=== PATIENT | female | born 1950 | race Caucasian/White ===

== ENCOUNTER → 2016-11-02 | Outpatient (REF) | payer MEDICARE, MEDICAID ==
[~2016-11-02] MED LIST: /DULO30CA OR; ACET65TA OR; AMLO10TAB OR; ASPI81TA83 OR; ATEN25TA OR; CITRACAL OR; COLA100C2 OR; COMBIGAN OU; FLON0.05; GLUC500T OR; LANTUS SUBQ; LEVA500T OR; LEVOXYL25 MCG OR; LISI5TAB OR; LUMIGAN OU; MECL25TA2 OR; NEUR100C OR; OXYCPOW OR; PENNSAID EXT; TRAM50TA2 OR; VIT D
[2016-11-02 16:37] LABS: CALCIUM LEVEL 9.1 MG/DL (8.8-10.2); CREATININE FOR GFR 1.31 MG/DL (0.55-1.02); GLOMERULAR FILTRATION RATE 43.1 (>45); POTASSIUM SERUM 4.6 MEQ/L (3.5-5.1)
== END ==
LOC: M SFHCPLAZ 14:31
PROVIDERS: ATTEND Nurse Practitioner Family
DX: I11.0 Hypertensive heart disease with heart failure (principal)
CPT/HCPCS: 36415; 80048; G0463

== ENCOUNTER → 2016-11-16 | Outpatient (REF) | payer MEDICARE, MEDICAID ==
[2016-11-16 11:57] LABS: CALCIUM LEVEL 9.5 MG/DL (8.8-10.2); CREATININE FOR GFR 1.16 MG/DL (0.55-1.02); GLOMERULAR FILTRATION RATE 49.6 (>45); POTASSIUM SERUM 4.6 MEQ/L (3.5-5.1)
== END ==
LOC: M SFHCPLAZ 09:34
PROVIDERS: ATTEND Family Medicine
DX: I10 Essential (primary) hypertension (principal)

== ENCOUNTER → 2017-03-02 | Outpatient (CLI) | payer MEDICAID, MEDICARE ==
--- NOTE | 2017-03-05 09:44 | SLEEPCENT ---
DATE OF PROCEDURE: 03/02/2017 ORDERED BY: JOSE RAFAEL Prince Nocturnal polysomnography was performed for re-titration of pressure therapy in this patient with obstructive sleep apnea syndrome utilizing bilevel pressure therapy. For testing, a [place]iz[place] and [employer] Corta, Simplus full face mask of small size was used. An initial pressure of 8/4 was applied to the circuit and the lights were extinguished. 7 hours and 14 minutes of data were reviewed. There were 267 minutes of sleep identified. Sleep latency was prolonged at 99 minutes. Rapid eye movement (REM) latency was short at 49 minutes. Sleep architecture did improve with optimal pressure therapy. Overall sleep efficiency was 63% due to periods of wake during testing. The patient's EKG showed an underlying paced rhythm with PVCs. EEG showed fairly normal waveforms for awake and sleep. Persistence of respiratory events prompted increases in pressure therapy. The patient's best sleep was seen on an inspiratory pressure of 14 over expiratory pressure of 10. There was some activity in the mid portion of the study, but arousals from limb events were few. IMPRESSION: Obstructive sleep apnea syndrome (G47.33). RECOMMENDATION: Nightly use of bilevel pressure therapy inspiratory pressure of 14 over expiratory pressure of 10.
== END ==
LOC: M SLEEP 19:41
PROVIDERS: ATTEND Nurse Practitioner Adult Health
DX: G47.33 Obstructive sleep apnea (adult) (pediatric) (principal)

== ENCOUNTER → 2017-03-15 | Outpatient (REF) | payer MEDICARE ==
[2017-03-15 11:46] LABS: BASO % 0.4 % (0.0-1.0); EOS # 0.2 K/mm3 (0.0-0.50); EOS % 1.8 % (0.0-3.0); LARGE UNSTAINED CELL # 0.1 K/mm3 (0.0-0.4); LARGE UNSTAINED CELL % 1.5 % (0.0-4.0); LYMPH % 24.1 % (24.0-44.0); MEAN CORPUSCULAR HEMOGLOBIN 31.7 pg (27.0-33.0); MEAN CORPUSCULAR HGB CONC 32.4 g/dl (32.0-36.5); MEAN CORPUSCULAR VOLUME 97.8 fl (80.0-96.0); MONO # 0.7 K/mm3 (0.0-0.8); MONO % 8.6 % (0.0-5.0); NEUTROPHILS # 5.3 K/mm3 (1.8-7.7); NEUTROPHILS % 63.4 % (36.0-66.0); PLATELET COUNT, AUTOMATED 185 k/mm3 (150-450); RED CELL DISTRIBUTION WIDTH 12.5 % (11.5-14.5); WHITE BLOOD COUNT 8.4 K/mm3 (4.0-10.0)
[2017-03-15 11:49] LABS: ADD MORPHOLOGY? NO
[2017-03-15 11:52] LABS: ALBUMIN 3.8 GM/DL (3.2-5.2); ALBUMIN/GLOBULIN RATIO 1.15 (1.00-1.93); BILIRUBIN,TOTAL 0.6 MG/DL (0.2-1.0); CALCIUM LEVEL 9.2 MG/DL (8.8-10.2); CREATININE FOR GFR 1.29 MG/DL (0.55-1.02); FREE T4 1.17 NG/DL (0.76-1.46); GLOMERULAR FILTRATION RATE 43.9 (>45); POTASSIUM SERUM 5.4 MEQ/L (3.5-5.1); TOTAL PROTEIN 7.1 GM/DL (6.4-8.2)
== END ==
LOC: M SFHCPLAZ 08:45
PROVIDERS: ATTEND Nurse Practitioner Family
DX: I11.0 Hypertensive heart disease with heart failure (principal); E11.9 Type 2 diabetes mellitus without complications; E03.9 Hypothyroidism, unspecified

== ENCOUNTER → 2017-03-16 | Outpatient (REF) | payer MEDICARE ==
[2017-03-16 13:20] LABS: ANION GAP 9 MEQ/L (8-16); BLOOD UREA NITROGEN 29 MG/DL (7-18); CALCIUM LEVEL 9.4 MG/DL (8.8-10.2); CARBON DIOXIDE LEVEL 26 MEQ/L (21-32); CHLORIDE LEVEL 100 MEQ/L (98-107); CREATININE FOR GFR 1.45 MG/DL (0.55-1.02); GAMMA GLUTAMYLTRANSPEPTIDASE 44 U/L (5-55); GLOMERULAR FILTRATION RATE 38.3 (>45); GLUCOSE, FASTING 350 MG/DL (80-110); SODIUM LEVEL 135 MEQ/L (136-145)
[2017-03-16 13:25] LABS: POTASSIUM SERUM 5.8 MEQ/L (3.5-5.1)
== END ==
LOC: M SFHCPLAZ 10:35
PROVIDERS: ATTEND Family Medicine
DX: R94.5 Abnormal results of liver function studies (principal); E87.5 Hyperkalemia; Z79.899 Other long term (current) drug therapy

== ENCOUNTER → 2017-03-24 | Outpatient (REF) | payer MEDICARE ==
[2017-03-24 12:01] LABS: CALCIUM LEVEL 8.8 MG/DL (8.8-10.2); CREATININE FOR GFR 1.36 MG/DL (0.55-1.02); GLOMERULAR FILTRATION RATE 41.3 (>45); POTASSIUM SERUM 4.4 MEQ/L (3.5-5.1)
== END ==
LOC: M SFHCPLAZ 09:22
PROVIDERS: ATTEND Nurse Practitioner Family
DX: E11.9 Type 2 diabetes mellitus without complications (principal)

== ENCOUNTER → 2017-08-01 | Outpatient (CLI) | payer MEDICARE ==
--- NOTE | 2017-08-01 18:10 | REP ---
Duplex carotid sonography: History: Hypertension. Carotid bruit. Right carotid: The right common carotid artery is unremarkable on two-dimensional scanning. There is mild mixed plaquing in the bulb and proximal ICA on two-dimensional scanning. Color flow and spectral Doppler interrogation are unremarkable on the right. Velocity chart right carotid: Right CCA/PSV 71 cm/S Right ICA/PSV 63 EDV 22 Right ECA/PSV 60 Right ICA/CCA ratio normal 0.9. Impression: 0-15% category narrowing in the right ICA. Left carotid: Left common carotid artery is unremarkable and two-dimensional scanning. There is mild mixed plaquing in the bulb and proximal ICA. Color flow and spectral Doppler interrogation are unremarkable on the left. Velocity chart left carotid: Left CCA/PSV 64 cm/S Left ICA/PSV 64 EDV 22 Left ECA/PSV 83 Left ICA/CCA normal 1.0. Impression: 16-49% category narrowing in the left ICA by Doppler velocity criteria. Probably near the lower end of this range. Please note that ICA velocities have not increased significantly since the December 07, 2013 prior study. Signed by Cade Nelson MD 08/01/2017 08:02 P
== END ==
LOC: M RAD 16:17
PROVIDERS: ATTEND Nurse Practitioner Family
DX: I10 Essential (primary) hypertension (principal); R09.89 Other specified symptoms and signs involving the circulatory and respiratory systems

== ENCOUNTER → 2017-10-28 | Outpatient (CLI) | payer MEDICARE, MEDICAID | LOC: M RAD 15:00 | DX: N18.3 Chronic kidney disease, stage 3 (moderate) (principal); E11.22 Type 2 diabetes mellitus with diabetic chronic kidney disease; I11.0 Hypertensive heart disease with heart failure; I50.9 Heart failure, unspecified | CPT/HCPCS: 76775 ==

== ENCOUNTER → 2017-11-17 | Outpatient (CLI) | payer MEDICARE | LOC: M WHC 12:54 | DX: Z12.31 Encounter for screening mammogram for malignant neoplasm of breast (principal); Z13.820 Encounter for screening for osteoporosis; M81.0 Age-related osteoporosis without current pathological fracture | CPT/HCPCS: 77067 ==

== ENCOUNTER → 2018-01-05 | Outpatient (REF) | payer MEDICARE ==
[2018-01-05 13:08] LABS: TOTAL 25(OH) VITAMIN D 25.2 NG/ML (30.0-100.0)
[2018-01-05 14:03] LABS: ALBUMIN 3.8 GM/DL (3.2-5.2); ALBUMIN/GLOBULIN RATIO 1.12 (1.00-1.93); ALKALINE PHOSPHATASE 148 U/L (45-117); ALT/SGPT 40 U/L (12-78); ANION GAP 8 MEQ/L (8-16); AST/SGOT 19 U/L (7-37); BILIRUBIN,TOTAL 0.5 MG/DL (0.2-1.0); BLOOD UREA NITROGEN 38 MG/DL (7-18); CALCIUM LEVEL 9.3 MG/DL (8.8-10.2); CARBON DIOXIDE LEVEL 25 MEQ/L (21-32); CHLORIDE LEVEL 107 MEQ/L (98-107); CHOLESTEROL LEVEL 117 MG/DL (<200); CHOLESTEROL RISK RATIO 4.178 (<5); CREATININE FOR GFR 1.28 MG/DL (0.55-1.30); FREE T4 1.05 NG/DL (0.76-1.46); GLOMERULAR FILTRATION RATE 44.1 (>45); GLUCOSE, FASTING 176 MG/DL (70-100); HDL CHOLESTEROL 28 MG/DL (>40); NON-HDL-C 89 MG/DL; POTASSIUM SERUM 4.5 MEQ/L (3.5-5.1); SODIUM LEVEL 140 MEQ/L (136-145); TOTAL PROTEIN 7.2 GM/DL (6.4-8.2); TRIGLYCERIDES LEVEL 275 MG/DL (<150)
[2018-01-05 15:14] LABS: ESTIMATED AVERAGE GLUCOSE 321 MG/DL (60-110); HEMOGLOBIN A1c 12.8 %
== END ==
LOC: M SFHCPLAZ 09:06
DX: E11.69 Type 2 diabetes mellitus with other specified complication (principal); E03.9 Hypothyroidism, unspecified; E78.5 Hyperlipidemia, unspecified; I50.42 Chronic combined systolic (congestive) and diastolic (congestive) heart failure; E55.9 Vitamin D deficiency, unspecified
CPT/HCPCS: 84443

== ENCOUNTER → 2018-02-24 | Outpatient (CLI) | payer MEDICARE ==
[2018-02-24 09:53] LABS: ESTIMATED AVERAGE GLUCOSE 209 MG/DL (60-110); HEMOGLOBIN A1c 8.9 %
[2018-02-24 10:15] LABS: FREE T4 0.92 NG/DL (0.76-1.46); RHEUMATOID FACTOR QUANT < 10.0 IU/ML (<15.0); TOTAL PROTEIN 7.3 GM/DL (6.4-8.2)
[2018-02-24 10:56] LABS: ERYTHROCYTE SEDIMENTATION RATE 30 mm/hr (0-30)
[2018-02-24 12:20] LABS: VITAMIN B12 LEVEL 243 PG/ML (247-911)
[2018-02-24 12:28] LABS: FOLATE 12.1 NG/ML (>5.4)
[2018-02-27 11:07] LABS: ALBUMIN 4.15 GM/DL (3.29-5.55); ALBUMIN % 56.9 % (55.8-66.1); ALPHA-1-GLOBULIN % 4.9 % (2.9-4.9); ALPHA-1-GLOBULINS 0.36 GM/DL (0.17-0.41); ALPHA-2-GLOBULINS 0.86 GM/DL (0.42-0.99); ALPHA-2-GLOBULINS % 11.8 % (7.1-11.8); BETA-1-GLOBULINS 0.51 GM/DL (0.28-0.60); BETA-2-GLOBULINS 0.47 GM/DL (0.19-0.55); BETA-2-GLOBULINS % 6.5 % (3.2-6.5); GAMMA GLOBULIN % 12.9 % (11.1-18.8); GAMMA GLOBULINS 0.94 GM/DL (0.65-1.58)
[2018-03-02 00:07] LABS: ACETYLCHOLINE RCPTOR BINDING A < 0.03 nmol/L (0.00-0.24); ANTINUCLEAR ANTIBODIES DIRECT Negative (Negative); STRIATIONAL ANTIBODIES Negative (Neg:<1:40); VITAMIN B1 LEVEL WHOLE BLOOD 112.5 nmol/L (66.5-200.0); VITAMIN B6,PYRIDOXAL PHOSPHATE 11.9 ug/L (2.0-32.8); VITAMIN E(ALPHA TOCOPHEROL) 8.9 mg/L (9.0-29.0); VITAMIN E(GAMMA TOCOPHEROL) 2.8 mg/L (0.5-4.9)
== END ==
LOC: M RAD 08:37
DX: H53.2 Diplopia (principal); M43.06 Spondylolysis, lumbar region; R20.2 Paresthesia of skin; E11.9 Type 2 diabetes mellitus without complications; E04.8 Other specified nontoxic goiter
CPT/HCPCS: 70450

== ENCOUNTER → 2018-08-07 | Outpatient (CLI) | payer MEDICARE, MEDICAID ==
[2018-08-07 14:14] LABS: FOLATE 15.6 NG/ML (>5.4)
[2018-08-07 14:14] LABS: VITAMIN B12 LEVEL > 2000 PG/ML (247-911)
[2018-08-11 09:44] LABS: Methylmalonic Acid 222 nmol/L (0-378)
== END ==
LOC: M RAD 13:14
DX: E53.8 Deficiency of other specified B group vitamins (principal); I63.09 Cerebral infarction due to thrombosis of other precerebral artery; R27.0 Ataxia, unspecified
CPT/HCPCS: 70450

== ENCOUNTER → 2018-10-10 | Outpatient (REF) | payer MEDICARE, MEDICAID ==
[2018-10-10 12:24] LABS: ESTIMATED AVERAGE GLUCOSE 229 MG/DL (60-110); HEMOGLOBIN A1c 9.6 %
== END ==
LOC: M SFHCPLAZ 09:58
DX: E11.69 Type 2 diabetes mellitus with other specified complication (principal)
CPT/HCPCS: 83036

== ENCOUNTER → 2018-10-16 | Outpatient (REF) | payer MEDICARE, MEDICAID ==
[2018-10-16 16:17] LABS: CALCIUM LEVEL 9.1 MG/DL (8.8-10.2); CREATININE FOR GFR 1.34 MG/DL (0.55-1.30); GLOMERULAR FILTRATION RATE 41.7 (>45); POTASSIUM SERUM 4.6 MEQ/L (3.5-5.1)
== END ==
LOC: M LABDRAW1 15:53
PROVIDERS: ATTEND Physician Assistant
DX: I50.42 Chronic combined systolic (congestive) and diastolic (congestive) heart failure (principal)

== ENCOUNTER → 2019-02-20 | Outpatient (REF) | payer MEDICARE, MEDICAID ==
[~2019-02-20] MED LIST changes: -/DULO30CA OR; +CYMB1CAP5 OR
[2019-02-20 18:58] LABS: HEMATOCRIT 38.7 % (36.0-47.0); HEMOGLOBIN 12.2 g/dl (12.0-15.5); MEAN CORPUSCULAR HEMOGLOBIN 30.7 pg (27.0-33.0); MEAN CORPUSCULAR HGB CONC 31.5 g/dl (32.0-36.5); MEAN CORPUSCULAR VOLUME 97.5 fl (80.0-96.0); PLATELET COUNT, AUTOMATED 168 10^3/uL (150-450); RED BLOOD COUNT 3.97 10^6/uL (4.00-5.40); WHITE BLOOD COUNT 8.7 10^3/uL (4.0-10.0)
[2019-02-20 19:12] LABS: ALBUMIN 3.6 GM/DL (3.2-5.2); BILIRUBIN,TOTAL 0.6 MG/DL (0.2-1.0); CALCIUM LEVEL 8.9 MG/DL (8.8-10.2); CREATININE FOR GFR 1.51 MG/DL (0.55-1.30); GLOMERULAR FILTRATION RATE 36.4 (>45); MAGNESIUM LEVEL 2.3 MG/DL (1.8-2.4); POTASSIUM SERUM 5.3 MEQ/L (3.5-5.1); THYROID STIMULATING HORMONE 0.321 uIU/ML (0.358-3.740); TOTAL PROTEIN 7.1 GM/DL (6.4-8.2)
== END ==
LOC: M LABDRAW1 16:24
PROVIDERS: ATTEND Physician Assistant
DX: I50.42 Chronic combined systolic (congestive) and diastolic (congestive) heart failure (principal); I42.8 Other cardiomyopathies; I47.2 Ventricular tachycardia

== ENCOUNTER → 2019-05-07 | Outpatient (REF) | payer MEDICARE, MEDICAID ==
[2019-05-07 12:52] LABS: CALCIUM LEVEL 8.9 MG/DL (8.8-10.2); CREATININE FOR GFR 1.36 MG/DL (0.55-1.30); MAGNESIUM LEVEL 2.3 MG/DL (1.8-2.4); POTASSIUM SERUM 4.9 MEQ/L (3.5-5.1)
== END ==
LOC: M LABDRAW1 11:16
PROVIDERS: ATTEND Physician Assistant
DX: I50.42 Chronic combined systolic (congestive) and diastolic (congestive) heart failure (principal)

== ENCOUNTER → 2019-05-07 | Outpatient (REF) | payer MEDICARE, MEDICAID ==
[2019-05-07 12:59] LABS: FREE T4 1.56 NG/DL (0.76-1.46); THYROID STIMULATING HORMONE 0.266 uIU/ML (0.358-3.740)
[2019-05-07 14:18] LABS: HEMOGLOBIN A1c 8.2 %
== END ==
LOC: M LABDRAW1 11:18
PROVIDERS: ATTEND Student in an Organized Health Care Education/Training Program
DX: E03.9 Hypothyroidism, unspecified (principal); E11.9 Type 2 diabetes mellitus without complications; I50.42 Chronic combined systolic (congestive) and diastolic (congestive) heart failure

== ENCOUNTER → 2019-06-18 | Outpatient (REF) | payer MEDICARE, MEDICAID ==
[2019-06-18 13:34] LABS: FREE T4 1.28 NG/DL (0.76-1.46); THYROID STIMULATING HORMONE 0.268 uIU/ML (0.358-3.740)
== END ==
LOC: M LABDRAW1 11:47
PROVIDERS: ATTEND Student in an Organized Health Care Education/Training Program
DX: E03.9 Hypothyroidism, unspecified (principal)

== ENCOUNTER → 2019-11-13 | Outpatient (CLI) | payer MEDICARE, MEDICAID ==
--- NOTE | 2019-11-13 14:33 | REP ---
INDICATION: Low back pain PROCEDURE: CT lumbar spine without contrast. COMPARISON STUDIES: 02/24/2018 FINDINGS: There is progressed degenerative disc disease with loss of disc height and disc desiccation that is more notable L2-3 through L4-5 levels with vacuum disc phenomena and the absence of disc. Vertebral heights are well preserved. No definite compression fractures. The spinal canal is widely patent. On review of axial images, At L1-2 no significant canal or foraminal narrowing At L2-3 osteophytes narrow the left neural foramen, moderate, there is mild canal narrowing and mild right foraminal narrowing. At L3-4 osteophyte complex with mild canal narrowing and severe right and moderate left foraminal narrowing and bkrv-ml-pnrjciet canal stenosis. At L4-5 osteophyte with mild bilateral foraminal narrowing. Mild canal stenosis. At L5 S1 facet osteophytes, osteophytes, with ftoc-bk-ljkslnxl canal narrowing uhaf-[id number] bilateral foraminal narrowing. There is diffuse osteopenia. When compared to prior study of 02/24/2019, no significant changes. IMPRESSION: No acute findings. Degenerative changes as described. No limiting canal stenosis. Multilevel foraminal narrowing. When compared to prior study of 02/24/2019, no gross changes. Electronically Signed by Gurpreet Oakes MD 11/13/2019 02:25 P
--- NOTE | 2019-11-13 14:43 | REP ---
INDICATION: Thoracic pain PROCEDURE: CT of the thoracic spine with multiplanar re-formations COMPARISON STUDIES: no prior similar studies FINDINGS: Degenerative disc disease is progressed at the lower thoracic levels (?T7-T11) with loss of disc height, endplate changes and vacuum disc phenomenon. This seems to be most progressed at the T10-T11 disc level. A caveat however is that the epitaxial reactor operator image is suboptimal for identifying levels and spine level labeling should be confirmed on follow-up studies. No fracture or subluxation There is vacuum disc and endplate sclerosis at this level, (appears to be T10-T11) no limiting canal stenosis. Foraminal narrowing is progressed at the level of the sclerosis with loss of disc height and superior migration of the superior articulating facet of T10 narrowing the neural foramen bilaterally. There is osteophytic spurring evident on the left. The prevertebral soft tissues appear within normal limits. No definite limiting canal stenosis. IMPRESSION: No acute findings. Advanced degenerative change at the lower thoracic spine as described. Electronically Signed by Gurpreet Oakes MD 11/13/2019 02:35 P
== END ==
LOC: M RAD 13:29
PROVIDERS: ATTEND Physician Assistant Medical
DX: M54.5 Low back pain (principal)

== ENCOUNTER → 2019-11-19 | Outpatient (CLI) | payer MEDICARE, MEDICAID ==
[2019-11-19 18:18] LABS: FREE T4 1.1 NG/DL (0.76-1.46); THYROID STIMULATING HORMONE 0.896 uIU/ML (0.358-3.740)
[2019-11-19 18:53] LABS: HEMOGLOBIN A1c 10.5 %
== END ==
LOC: M PLALAB 13:45
PROVIDERS: ATTEND Student in an Organized Health Care Education/Training Program
DX: E03.9 Hypothyroidism, unspecified (principal); E11.69 Type 2 diabetes mellitus with other specified complication

== ENCOUNTER → 2020-04-07 | Outpatient (REF) | payer MEDICARE, MEDICAID ==
[2020-04-07 15:28] LABS: HEMOGLOBIN A1c 10.1 %
[2020-04-08 11:40] LABS: CREATININE, URINE < 13.0 MG/DL; MALB URINE SIEMENS 5.2 MG/L
== END ==
LOC: M SFHCPLAZ 14:53
PROVIDERS: ATTEND Student in an Organized Health Care Education/Training Program
DX: E11.69 Type 2 diabetes mellitus with other specified complication (principal)

== ENCOUNTER → 2020-08-27 | Outpatient (CLI) | payer MEDICARE, MEDICAID ==
[2020-08-27 13:45] LABS: HEMATOCRIT 38.9 % (36.0-47.0); HEMOGLOBIN 12.2 g/dl (12.0-15.5); MEAN CORPUSCULAR HEMOGLOBIN 30.2 pg (27.0-33.0); MEAN CORPUSCULAR HGB CONC 31.4 g/dl (32.0-36.5); MEAN CORPUSCULAR VOLUME 96.3 fl (80.0-96.0); PLATELET COUNT, AUTOMATED 169 10^3/uL (150-450); RED BLOOD COUNT 4.04 10^6/uL (4.00-5.40); WHITE BLOOD COUNT 8.3 10^3/uL (4.0-10.0)
[2020-08-27 14:18] LABS: HEMOGLOBIN A1c 9.9 %
[2020-08-27 14:22] LABS: ALBUMIN 3.6 GM/DL (3.2-5.2); BILIRUBIN,TOTAL 0.5 MG/DL (0.2-1.0); CALCIUM LEVEL 9.4 MG/DL (8.8-10.2); CREATININE FOR GFR 1.36 MG/DL (0.55-1.30); FREE T4 1.29 NG/DL (0.76-1.46); GLOMERULAR FILTRATION RATE 40.8 (>39); POTASSIUM SERUM 4.2 MEQ/L (3.5-5.1); THYROID STIMULATING HORMONE 1.38 uIU/ML (0.358-3.740); TOTAL PROTEIN 6.7 GM/DL (6.4-8.2)
== END ==
LOC: M PLALAB 09:46
PROVIDERS: ATTEND Student in an Organized Health Care Education/Training Program
DX: E03.9 Hypothyroidism, unspecified (principal); E11.9 Type 2 diabetes mellitus without complications; E61.1 Iron deficiency

== ENCOUNTER → 2020-09-16 | Outpatient (CLI) | payer MEDICARE, MEDICAID ==
--- NOTE | 2020-09-16 13:35 | REPPI ---
INDICATION: LEFT SHOULDER PAIN. COMPARISON: None TECHNIQUE: Three views of the left shoulder were performed. FINDINGS: The acromioclavicular and glenohumeral relationships are within normal limits. There is asymmetric narrowing of the glenohumeral joint with mild marginal osteophytosis. There is a soft tissue calcification superior to the greater humeral tuberosity. There is no acute fracture or destructive osseous lesion. IMPRESSION: 1. Chronic changes as described above. 2. Soft tissue calcification possibly secondary to chronic calcific supraspinatus tendinitis or chronic subdeltoid calcific bursitis. <Electronically signed by Meliton Ambrosio > 09/16/20 [id number]
== END ==
LOC: M PLAIMG 10:24
PROVIDERS: ATTEND Student in an Organized Health Care Education/Training Program
DX: M25.512 Pain in left shoulder (principal)

== ENCOUNTER → 2021-01-19 | Outpatient (REF) | payer MEDICARE, MEDICAID | LOC: M SFHCPLAZ 11:52 | PROVIDERS: ATTEND Family Medicine | DX: E11.69 Type 2 diabetes mellitus with other specified complication (principal); E53.8 Deficiency of other specified B group vitamins ==

== ENCOUNTER 2021-03-28 11:42 | Inpatient (IN) | payer MEDICARE, MEDICAID ==
[~2021-03-28] VITALS: Ht 157.5 cm; Wt 92.7 kg
[2021-03-28] MEDS ORDERED: NOVOINJ SC (12:17)
[2021-03-28] MEDS ORDERED: ENTR1TAB7 PO (12:17)
[2021-03-28] MEDS ORDERED: SPIR-10 PO (12:17)
[2021-03-28] MEDS ORDERED: BASA100I SC (12:17)
[2021-03-28] MEDS ORDERED: VICT18IN2 SQ (12:17)
[2021-03-28] MEDS ORDERED: PLAV1TAB2 PO (12:17)
[2021-03-28] MEDS ORDERED: ATOR80TA59 PO (12:17)
[2021-03-28 12:25] LABS: BASO % 0.2 % (0.0-1.0); EOS % 0.3 % (0.0-3.0); HEMOGLOBIN 13.2 g/dl (12.0-15.5); LYMPH # 1.7 10^3/uL (1.5-5.0); LYMPH % 14.1 % (24.0-44.0); MEAN CORPUSCULAR HEMOGLOBIN 31.1 pg (27.0-33.0); MEAN CORPUSCULAR VOLUME 94.3 fl (80.0-96.0); MONO # 0.9 10^3/uL (0.0-0.8); MONO % 7.4 % (2.0-8.0); NEUTROPHILS # 9.3 10^3/uL (1.5-8.5); NEUTROPHILS % 77.7 % (36.0-66.0); PLATELET COUNT, AUTOMATED 209 10^3/uL (150-450); RED BLOOD COUNT 4.24 10^6/uL (4.00-5.40)
[2021-03-28 12:55] LABS: ALBUMIN 3.6 GM/DL (3.2-5.2); BILIRUBIN,DIRECT 0.2 MG/DL (0.0-0.2); BILIRUBIN,TOTAL 0.8 MG/DL (0.2-1.0); CK-MB VALUE MASS 5.3 NG/ML (<3.6); MB/CK RELATIVE INDEX 2.68 (< OR =4); TOTAL PROTEIN 6.7 GM/DL (6.4-8.2); TROPONIN I 0.03 NG/ML (< 0.10)
--- NOTE | 2021-03-28 13:01 | REP ---
INDICATION: sob COMPARISON: 11/29/2015 TECHNIQUE: Portable AP view of the chest FINDINGS: The mediastinum and cardiac silhouette are stable and cardiomegaly with pacemaker again noted. Sternal fixation noted. The lung thompson are clear without acute consolidation, effusion, or pneumothorax. Skeletal structures are intact. IMPRESSION: No acute cardiopulmonary process appreciated. <Electronically signed by Tomas Dumas > 03/28/21 [id number]
[2021-03-28 13:14] LABS: CREATININE FOR GFR 1.96 MG/DL (0.55-1.30); GLOMERULAR FILTRATION RATE 26.8 (>39); MAGNESIUM LEVEL 1.9 MG/DL (1.8-2.4); POTASSIUM SERUM 4.7 MEQ/L (3.5-5.1)
[2021-03-28] MEDS ORDERED: NS 500 ML IV ONE (13:20)
--- NOTE | 2021-03-28 13:49 | REP ---
INDICATION: leg pain/ shortness of breath COMPARISON: None. TECHNIQUE: Anand scale and color Doppler evaluation using linear high frequency transducer. FINDINGS: Ultrasound examination of the right and left lower extremity deep venous structures from the common femoral vein through the calf/ankle to include the peroneal, and tibial veins demonstrates normal compressibility flow and wave patterns in response to respiration and augmentation. There is no evidence for deep venous thrombosis. IMPRESSION: No evidence for deep venous thrombosis. <Electronically signed by Tomas Dumas > 03/28/21 [id number]
[2021-03-28 14:44] LABS: RSV AMPLIFICATION NEGATIVE (NEGATIVE)
[2021-03-28] MEDS ORDERED: DIGOXIN INJ 0.5 MG/2 ML AMP (J1160) IV ONE ×2 (15:05→16:50)
--- NOTE | 2021-03-28 15:28 | ECGEPIP ---
[facility] - ED Test Date: 2021-03-28 Pat Name: GABRIELA SEPULVEDA Department: Room: - Gender: Female Digital Marketing Specialist: MAX : 1950 Requested By: Aleida Byrd Order Number: [id number] Reading MD: Aleida Byrd Measurements Intervals [place] Rate: 139 P: [place]: QRS: -3 QRSD: 150 T: 170 QT: 354 QTc: 538 Interpretive Statements av julio reentry tachycardia Left ventricular hypertrophy with QRS widening and repolarization abnormality ( R in aVL , Robinson product ) Inferior infarct , age undetermined, clinical correlation increased rate 11/29/15 Electronically Signed on 03-28-2021 15:28:07 EDT by Aleida Byrd
--- NOTE | 2021-03-28 15:31 | REP ---
INDICATION: shortness of breath, elevated wbc, arf COMPARISON: None TECHNIQUE: Axial noncontrast images from the thoracic inlet to the upper abdomen with coronal and sagittal reformations. This CT examination was performed using the following dose reduction techniques: Automated exposure control, adjustment of mA and/or kv according to the patient's size, and use of iterative reconstruction technique. FINDINGS: There is evidence for cardiomegaly and the lung thompson demonstrate mild prominence to the pulmonary vasculature and interstitium which may reflect chronic pulmonary vascular congestion/interstitial edema. No focal consolidation or pleural effusion. No pneumothorax. Tracheobronchial tree is patent. There is a stable 5 mm subpleural nodule at the left lung base (series 201; image 74) unchanged compared to 2013. Further evaluation of the mediastinum again demonstrates cardiomegaly and evidence for mitral valve repair along with pacemaker, and presumed prior CABG. Patient is status post associated sternotomy. Skeletal structures demonstrate degenerative changes without acute osseous abnormality. IMPRESSION: 1. Findings suggesting pulmonary vascular congestion/interstitial edema. 2. No focal consolidation or effusion. <Electronically signed by Tomas Dumas > 03/28/21 [id number]
[2021-03-28] MEDS ORDERED: AMIODARONE HCL 150 MG in IV 1 EA IV STA (16:17)
[2021-03-28] MEDS ORDERED: DOCU100C16 PO (16:56)
[2021-03-28] MEDS ORDERED: ASPI81TA26 PO (16:56)
[2021-03-28] MEDS ORDERED: SYNT125T PO (16:56)
[2021-03-28] MEDS ORDERED: D 101000 PO (16:56)
[2021-03-28] MEDS ORDERED: FURO20TA2 PO (17:11)
[2021-03-28] MEDS ORDERED: NITR0.4S14 SL (17:11)
[2021-03-28] MEDS ORDERED: DIGOXIN INJ 0.5 MG/2 ML AMP (J1160) IV STA (17:57)
[2021-03-28] MEDS ORDERED: DOCUSATE SODIUM 100MG CAPSULE PO PRN (18:10)
[2021-03-28] MEDS ORDERED: NITROGLYCERIN 0.4 MG SUBL TABLET SL PRN (18:10)
[2021-03-28] MEDS ORDERED: AMIODARONE HCL 150 MG in IV 1 EA IV ONE (19:15)
[2021-03-28] MEDS: APIXABAN 5 MG TAB (ELIQUIS) PO SCH (19:31)
--- NOTE | 2021-03-28 19:57 | HPEPDOC ---
General Date of Admission March 28, 2021 at 17:57 Date of Service: March 28, 2021 Chief Complaint The patient is a 70-year-old female admitted with a reason for visit of Atrial Fluid With Rapid Ventricular Response. History of Present Illness Mrs. Schulte is a 70 year old female with DM2, combined systolic/diastolic CHF, MVR with pig valve, and ICD implanted who presents with 1 to 2 weeks of dyspnea and generalized weakness and found to have atrial flutter with heart rate in 140. About 1 to 2 weeks ago, she started to notice dyspnea on exertion. It had progressively worsened and sometimes had dyspnea while at rest. Otherwise, she had dizziness when sitting up and generalized weakness. She came to the ER for evaluation. She was found to have atrial flutter with HR at 140 with hypotension with SBP in the 80s to 90s. Patient was given 0.5mcg IV dig, and then subsequently amiodarone 150mg. There was no improvement and Dr. Spencer was contacted. Dr. Spencer looked at the EKG, it was atrial flutter. Recommended given 0.25mcg IV dig following by 0.25mcg IV dig 1 hour afterwards. Then contact him. I contacted him and he recommended amiodarone 150. If HR is not below 100 to give another amiodarone 150 about 30 minutes afterwards. Patient's atrial flutter converted to sinus rhythm converted prior to amiodarone. Patient will be admitted for new onset atrial flutter, acute decompensated CHF, and JACOB. Home Medications Scheduled Aspirin (Aspirin EC) 81 Mg Tablet., 81 MG PO DAILY, (Reported) Atorvastatin Calcium (Atorvastatin Calcium) 80 Mg Tablet, 80 MG PO DAILY, (Reported) Cholecalciferol (Vitamin D3) (Vitamin D3) 25 Mcg Capsule, 25 MCG PO DAILY, (Reported) Clopidogrel Bisulfate (Plavix) 75 Mg Tablet, 75 MG PO DAILY, (Reported) Furosemide (Furosemide) 20 Mg Tablet, 20 MG PO DAILY, (Reported) Insulin Aspart (Novolog) 100 Unit/1 Ml Cartridge, 1 DOSE SC AC, (Reported) PER SLIDING SCALE Insulin Glargine,Hum.rec.anlog (Basaglar Kwikpen U-100) 100 Unit/1 Ml Insuln.pen, 55 UNIT SC BID, (Reported) Levothyroxine Sodium (Synthroid) 125 Mcg Tablet, 125 MCG PO DAILY, (Reported) Liraglutide (Victoza 3-Antonio) 0.6 Mg/0.1 Ml Pen.injctr, 1.8 MG SQ DAILY, (Reported) Sacubitril/Valsartan (Entresto 49 mg-51 mg Tablet) 1 Each Tablet, 1 TAB PO BID, (Reported) Spironolactone (Spironolactone) 25 Mg Tablet, 25 MG PO DAILY, (Reported) Scheduled PRN Docusate Sodium (Docusate Sodium) 100 Mg Capsule, 100 MG PO BID PRN for CONSTIPATION, (Reported) Nitroglycerin (Nitroglycerin) 0.4 Mg Tab.subl, 0.4 MG SL NITRO PRN for CHEST PAIN, (Reported) Allergies Coded Allergies: Penicillins (Verified Allergy, Intermediate, rash, 03/28/21) SEAFOOD (Verified Allergy, Intermediate, vomiting , 03/28/21) iodine (Verified Allergy, Intermediate, vomiting, 03/28/21) Past Medical History Medical History 1. Hypertension 2. Hypothyroidism 3. IDDM2 4. Vision loss of right eye 5. Depression 6. CAD s/p stents 7. Systolic and diastolic CHF s/p ICD placement 8. Diabetic retinopathy 9. MARKY on Bipap 10. Bilateral carpal tunnel 11. Vitamin B12 deficiency 12. Spinal stenosis Surgical History 1. Hysterectomy 2. Rectocele 3. D&C numerous prior to hysterectomy 4. Cholecystectomy 5. I&D left labial abscess 6. Left eye surgery 7. Glaucoma surgery 8. Cataract surgery 9. Right eye cataract with shunt 10. MVR [facility] (03/2015) 11. ICD implant 12. Last colonoscopy 2015 Family History Father: History of [place] Mother: History of Pneumonia, Hypertension, DM Social History * Smoker: non-smoker Alcohol: Denies Drugs: denies A-FIB/CHADSVASC A-FIB History Current/History of A-Fib/PAF?: Yes Current PO Anticoag Therapy: Yes Treatment Treatment ordered: Apixaban Review of Systems Constitutional: Reports: Weakness, Fatigue; Denies: Fever Eyes: Reports: Other (Legally blind in the left eye) ENT: Denies: Sore Throat Skin: Denies: Rash Pulmonary: Reports: Dyspnea (on exertion), Cough Cardiovascular: Reports: Lt Headedness; Denies: Chest Pain Gastrointestinal: Reports: Constipation; Denies: Abdominal Pain, Diarrhea Genitourinary: Denies: Dysuria Hematologic: Denies: Bruising Neurological: Reports: Other Symptoms (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) Psych: Denies: Anxiety, Depression Physical Examination General Exam: Positive: Alert, Cooperative Eye Exam: Positive: EOMI; Negative: Sclera icteric ENT Exam: Positive: Atraumatic Neck Exam: Positive: Supple Chest Exam: Positive: Clear to auscultation; Negative: Rales, Rhonchi Heart Exam: Positive: Tachycardic, Regular Rhythm Abdomen Exam: Positive: Normal bowel sounds, Soft; Negative: Tenderness Extremity Exam: Negative: Edema Neuro Exam: Positive: Normal Speech, Cranial Nerves 3-12 NL Psych Exam: Positive: Mental status NL, Mood NL Vital Signs Vital Signs Date Time Temp Pulse Resp B/P (MAP) Pulse Ox O2 Delivery O2 Flow Rate FiO2 03/28/21 17:06 134 03/28/21 15:20 96 03/28/21 15:15 85/53 (64) 03/28/21 11:50 98.6 22 Room Air Laboratory Data Labs 24H Laboratory Tests 2 03/28/21 12:08: Immature Granulocyte % (Auto) 0.3, Neutrophils (%) (Auto) 77.7H, Lymphocytes (%) (Auto) 14.1L, Monocytes (%) (Auto) 7.4, Eosinophils (%) (Auto) 0.3, Basophils (%) (Auto) 0.2, Neutrophils # (Auto) 9.3H, Lymphocytes # (Auto) 1.7, Monocytes # (Auto) 0.9H, Eosinophils # (Auto) 0.0, Basophils # (Auto) 0.0, Nucleated Red Blood Cells % (auto) 0.0, Anion Gap 11, Glomerular Filtration Rate 26.8L, Lactic Acid Level 2.0, Calcium Level 9.0, Magnesium Level 1.9, Total Bilirubin 0.8, Direct Bilirubin 0.2, Aspartate Amino Transf (AST/SGOT) 27, Alanine Aminotransferase (ALT/SGPT) 38, Alkaline Phosphatase 121H, Total Creatine Kinase 198H, Creatine Kinase MB 5.3H, Creatine Kinase MB Relative Index 2.68, Troponin I 0.03, BU-Fgr-Z-Type Natriuretic Peptide 7785H, Total Protein 6.7, Albumin 3.6, Albumin/Globulin Ratio 1.2, Lipase 52L 03/28/21 12:10: POC Glucose (Misc Panel) 149H, POC Sodium (Misc Panel) 134L, POC Potassium (Misc Panel) 4.4, POC Chloride (Misc Panel) 103, POC Total CO2 (Misc Panel) 20.0L, POC Blood Urea Nitrogen (Misc Panel 37H, POC Ionized Calcium (Misc Panel) 4.6, POC Creatinine (Misc Panel) 2.0H, POC Hematocrit (Misc Panel) 40.0 03/28/21 14:00: Coronavirus (COVID-19)(PCR) NEGATIVE, Influenza Type A (RT-PCR) NEGATIVE, Influenza Type B (RT-PCR) NEGATIVE, Respiratory Syncytial Virus (PCR) NEGATIVE 03/28/21 15:32: Urine Color YELLOW, Urine Appearance CLEAR, Urine pH 5.0, Urine Specific [place] 1.010, Urine Protein NEGATIVE, Urine Glucose (UA) NEGATIVE, Urine Ketones NEGATIVE, Urine Blood NEGATIVE, Urine Nitrite NEGATIVE, Urine Bilirubin NEGATIVE, Urine Urobilinogen 0.2, Urine Leukocyte Esterase TRACEH, Urine WBC (Auto) 3, Urine RBC (Auto) 2, Urine Hyaline Casts (Auto) 4, Urine Bacteria (Aut o) NEGATIVE, Urine Squamous Epithelial Cells 1, Urine Sperm (Auto) CBC/BMP Laboratory Tests 03/28/21 12:08 Microbiology Microbiology 03/28/21 Urine Culture, Received Pending Assessment/Plan Mrs. Schulte is a 70 year old female with DM2, combined systolic/diastolic CHF, MVR with pig valve, and ICD implanted who presents with 1 to 2 weeks of dyspnea and generalized weakness and found to have atrial flutter with heart rate in 140. Blood pressure was not able to tolerate CCB or BB. Patient was given a total of 1mcg of digoxin and 150mg of amiodarone prior to converting. Cardiology, Dr. Spencer, recommended amiodarone 200mg QID and apixaban. Otherwise, patient has acute decompensated CHF and JACOB which may be secondary to atrial flutter with rapid ventricular response. Heart failure and kidney injury may improve with improvement of heart rate. Will monitor overnight. Otherwise patient will need an echocardiogram tomorrow for new onset atrial flutter. Plan / VTE VTE Prophylaxis Ordered?: Yes Plan Plan 1. Atrial flutter with rapid ventricular rate -Blood pressure could not tolerate CCB or BB -Converted to sinus rhythm with 1mcg of digoxin and 150mg of amiodarone -Cardiology recommended 200mg PO amiodarone QID and apixaban. -Patient will need echocardiogram 2. Acute decompensated systolic and diastolic CHF -Elevated pro-BNP -Most likely secondary to atrial flutter with rapid ventricular response -Holding Entresto due to low BP -Holding spironolactone due to low BP -Continue Lasix 3. JACOB on CKD -Baseline creatinine 1.3 -On admission 1.96 -May improve with improved heart rate -Supportive care 4. DM2 -Basal insulin reduced due to controlled diet -Sliding scale insulin 5. Mitral valve replacement -Pig valve -Continue clopidogrel and aspirin 6. Hypothyroidism -Continue levothyroxine 7. DVT ppx -Patient is on apixaban Disposition: Pending clinical improvement and improvement in renal function DONNY HDEZ DO March 28, 2021 18:28
[2021-03-28] MEDS: AMIODARONE 200 MG TAB (PACERONE) PO SCH (20:07)
[2021-03-28 21:25] VITALS: BP 130/58
[2021-03-28] MEDS ORDERED: LEVEMIR (INSULIN DETEMIR) 1 UNITS/0.01ML SC ONE (22:10)
[2021-03-28] MEDS: LEVEMIR (INSULIN DETEMIR) 1 UNITS/0.01ML SC SCH (22:22)
[2021-03-29] VITALS (7 sets, daily range): BP systolic 93–124; BP diastolic 55–69
[2021-03-29 05:15] LABS: HEMATOCRIT 37.1 % (36.0-47.0); HEMOGLOBIN 12.2 g/dl (12.0-15.5); MEAN CORPUSCULAR HEMOGLOBIN 31.3 pg (27.0-33.0); MEAN CORPUSCULAR HGB CONC 32.9 g/dl (32.0-36.5); MEAN CORPUSCULAR VOLUME 95.1 fl (80.0-96.0); PLATELET COUNT, AUTOMATED 191 10^3/uL (150-450); WHITE BLOOD COUNT 8.8 10^3/uL (4.0-10.0)
[2021-03-29 05:35] LABS: CALCIUM LEVEL 9.1 MG/DL (8.8-10.2); CREATININE FOR GFR 1.63 MG/DL (0.55-1.30); GLOMERULAR FILTRATION RATE 33.1 (>39); POTASSIUM SERUM 4.3 MEQ/L (3.5-5.1)
[2021-03-29] MEDS: LEVOTHYROXINE 125MCG TABLET (0.125MG) PO SCH (06:07)
--- NOTE | 2021-03-29 07:54 | ECGEPIP ---
[facility] - ED Test Date: 2021-03-28 Pat Name: GABRIELA SEPULVEDA Department: Room: [place] [address] Gender: Female Automation Controls Engineer: Al BARRERA : 1950 Requested By: BRICE NOLAN Order Number: [id number] Reading MD: Aleida Byrd Measurements Intervals [place] Rate: 75 P: 13 NC: 194 QRS: -25 QRSD: 114 T: 120 QT: 412 QTc: 460 Interpretive Statements Normal sinus rhythm Left ventricular hypertrophy with repolarization abnormality ( R in aVL , Robinson product ) NSTTW abnormalities Inferior infarct , age undetermined, clinical correlation prwp rate/rhythm change 12:02 Electronically Signed on 03-29-2021 7:54:04 EDT by Aleida Byrd
[2021-03-29] MEDS: LEVEMIR (INSULIN DETEMIR) 1 UNITS/0.01ML SC SCH ×2 (08:00→21:22)
[2021-03-29] MEDS: ATORVASTATIN 20 MG TAB PO SCH (08:29)
[2021-03-29] MEDS: AMIODARONE 200 MG TAB (PACERONE) PO SCH ×4 (08:29→21:21)
[2021-03-29] MEDS: CLOPIDOGREL 75 MG TAB PO SCH (08:29)
[2021-03-29] MEDS: APIXABAN 5 MG TAB (ELIQUIS) PO SCH ×2 (08:29→21:21)
[2021-03-29] MEDS: ASPIRIN 81MG ENTERIC TABLET PO SCH (08:30)
[2021-03-29] MEDS ORDERED: FUROSEMIDE 20 MG TAB PO SCH (09:00)
[2021-03-29] MEDS: ENTRESTO 49-51MG TABLET (SACUBITRIL/VALSARTAN) PO SCH ×2 (10:20→21:21)
[2021-03-29] MEDS: SPIRONOLACTONE 25 MG TAB PO SCH (10:20)
[2021-03-29] MEDS: FUROSEMIDE 40MG/4ML VIAL (J1940) IV SCH (10:21)
--- NOTE | 2021-03-29 10:35 | IPNPDOC ---
Subjective Date Seen The patient was seen on 03/29/21. Subjective Chief Complaint/HPI Mrs. Schulte is a 70 year old female with DM2, combined systolic/diastolic CHF, MVR with pig valve, and ICD implanted who presents with 1 to 2 weeks of dyspnea and generalized weakness and found to have atrial flutter with heart rate in 140. This morning, she denied any lightheadedness or chest pain. We did a home safety eval and patient cleared from a safety standpoint, but was very winded. Her activity is not yet back a baseline. Will start her on IV diuretics. Objective Physical Examination General Exam: Positive: Alert, Cooperative Eye Exam: Positive: EOMI; Negative: Sclera icteric ENT Exam: Positive: Atraumatic Neck Exam: Positive: Supple Chest Exam: Positive: Clear to auscultation; Negative: Rales, Rhonchi Heart Exam: Positive: Rate Normal, Regular Rhythm Abdomen Exam: Positive: Normal bowel sounds, Soft; Negative: Tenderness Extremity Exam: Negative: Edema Neuro Exam: Positive: Normal Speech, Cranial Nerves 3-12 NL Psych Exam: Positive: Mental status NL, Mood NL Assessment /Plan Assessment Mrs. Schulte is a 70 year old female with DM2, combined systolic/diastolic CHF, MVR with pig valve, and ICD implanted who presents with 1 to 2 weeks of dyspnea and generalized weakness and found to have atrial flutter with heart rate in 140. Blood pressure was not able to tolerate CCB or BB. Patient was given a total of 1mcg of digoxin and 150mg of amiodarone prior to converting. Cardiology, Dr. Spencer, recommended amiodarone 200mg QID and apixaban. Otherwise, patient has acute decompensated CHF and JACOB which may be secondary to atrial flutter with rapid ventricular response. Renal function improved, but she still has dyspnea on exertion. Not yet back at baseline. Will start her on IV Lasix Plan/VTE VTE Prophylaxis Ordered?: Yes Plan 1. Atrial flutter with rapid ventricular rate -Blood pressure could not tolerate CCB or BB -Converted to sinus rhythm with 1mcg of digoxin and 150mg of amiodarone -Cardiology recommended 200mg PO amiodarone QID and apixaban. -Echocardiogram ordered 2. Acute decompensated systolic and diastolic CHF -Elevated pro-BNP -Most likely secondary to atrial flutter with rapid ventricular response -Restarted Entresto and Spironolactone -Started IV Lasix 3. JACOB on CKD -Baseline creatinine 1.3 -On admission 1.96 -Improved with improvement of heart rate -Supportive care 4. DM2 -Basal insulin reduced due to controlled diet -Sliding scale insulin 5. Mitral valve replacement -Pig valve -Continue clopidogrel and aspirin 6. Hypothyroidism -Continue levothyroxine 7. DVT ppx -Patient is on apixaban Disposition: Pending clinical improvement and improvement in dyspnea on exertion VS[facility]O Vital Signs Date Time Temp Pulse Resp B/P (MAP) Pulse Ox O2 Delivery O2 Flow Rate FiO2 03/29/21 07:01 97.0 73 18 122/58 (79) 96 Room Air I&O- Last 24 Hours up to 6 AM 03/29/21 05:59 Intake Total 220 ml Output Total 1000 ml Balance -780 ml Laboratory Data 24H LABS Laboratory Tests 2 03/28/21 12:08: Immature Granulocyte % (Auto) 0.3, Neutrophils (%) (Auto) 77.7H, Lymphocytes (%) (Auto) 14.1L, Monocytes (%) (Auto) 7.4, Eosinophils (%) (Auto) 0.3, Basophils (%) (Auto) 0.2, Neutrophils # (Auto) 9.3H, Lymphocytes # (Auto) 1.7, Monocytes # (Auto) 0.9H, Eosinophils # (Auto) 0.0, Basophils # (Auto) 0.0, Nucleated Red Blood Cells % (auto) 0.0, Anion Gap 11, Glomerular Filtration Rate 26.8L, Lactic Acid Level 2.0, Calcium Level 9.0, Magnesium Level 1.9, Total Bilirubin 0.8, Direct Bilirubin 0.2, Aspartate Amino Transf (AST/SGOT) 27, Alanine Aminotransferase (ALT/SGPT) 38, Alkaline Phosphatase 121H, Total Creatine Kinase 198H, Creatine Kinase MB 5.3H, Creatine Kinase MB Relative Index 2.68, Troponin I 0.03, CB-Atu-L-Type Natriuretic Peptide 7785H, Total Protein 6.7, Albumin 3.6, Albumin/Globulin Ratio 1.2, Lipase 52L 03/28/21 12:10: POC Glucose (Misc Panel) 149H, POC Sodium (Misc Panel) 134L, POC Potassium (Misc Panel) 4.4, POC Chloride (Misc Panel) 103, POC Total CO2 (Misc Panel) 20.0L, POC Blood Urea Nitrogen (Misc Panel 37H, POC Ionized Calcium (Misc Panel) 4.6, POC Creatinine (Misc Panel) 2.0H, POC Hematocrit (Misc Panel) 40.0 03/28/21 14:00: Coronavirus (COVID-19)(PCR) NEGATIVE, Influenza Type A (RT-PCR) NEGATIVE, Influenza Type B (RT-PCR) NEGATIVE, Respiratory Syncytial Virus (PCR) NEGATIVE 03/28/21 15:32: Urine Color YELLOW, Urine Appearance CLEAR, Urine pH 5.0, Urine Specific [place] 1.010, Urine Protein NEGATIVE, Urine Glucose (UA) NEGATIVE, Urine Ketones NEGATIVE, Urine Blood NEGATIVE, Urine Nitrite NEGATIVE, Urine Bilirubin NEGATIVE, Urine Urobilinogen 0.2, Urine Leukocyte Esterase TRACEH, Urine WBC (Auto) 3, Urine RBC (Auto) 2, Urine Hyaline Casts (Auto) 4, Urine Bacteria (Auto) NEGATIVE, Urine Squamous Epithelial Cells 1, Urine Sperm (Auto) 03/28/21 21:33: Bedside Glucose (Misc Panel) 106 03/29/21 04:16: Bedside Glucose (Misc Panel) 81L 03/29/21 04:45: Nucleated Red Blood Cells % (auto) 0.0, Anion Gap 9, Glomerular Filtration Rate 33.1L, Calcium Level 9.1 03/29/21 07:37: Bedside Glucose (Misc Panel) 97 CBC/BMP Laboratory Tests 03/28/21 12:08 03/29/21 04:45 Microbiology Microbiology 03/28/21 Urine Culture - Final, Complete DONNY HDEZ DO March 29, 2021 10:35
[2021-03-29] MEDS ORDERED: ELIQ5TAB PO (17:16)
[2021-03-29] MEDS ORDERED: AMIO200T3 PO (17:16)
[2021-03-29 21:59] LABS: CLOSTRIDIUM DIFFICILE PCR NEGATIVE (NEGATIVE)
[2021-03-30] VITALS: BP 113/53
[2021-03-30] MEDS ORDERED: LOPERAMIDE 2 MG CAPLET PO ONE (00:55)
[2021-03-30] MEDS ORDERED: LOPERAMIDE 2 MG CAPLET PO PRN (00:55)
[2021-03-30 04:05] VITALS: BP 116/56
[2021-03-30 05:32] LABS: HEMATOCRIT 35.7 % (36.0-47.0); HEMOGLOBIN 11.5 g/dl (12.0-15.5); MEAN CORPUSCULAR HEMOGLOBIN 30.6 pg (27.0-33.0); MEAN CORPUSCULAR HGB CONC 32.2 g/dl (32.0-36.5); MEAN CORPUSCULAR VOLUME 94.9 fl (80.0-96.0); PLATELET COUNT, AUTOMATED 172 10^3/uL (150-450); RED BLOOD COUNT 3.76 10^6/uL (4.00-5.40); WHITE BLOOD COUNT 7.9 10^3/uL (4.0-10.0)
[2021-03-30 06:00] LABS: CALCIUM LEVEL 8.1 MG/DL (8.8-10.2); CREATININE FOR GFR 1.69 MG/DL (0.55-1.30); GLOMERULAR FILTRATION RATE 31.8 (>39); POTASSIUM SERUM 4.5 MEQ/L (3.5-5.1)
[2021-03-30] MEDS: LEVOTHYROXINE 125MCG TABLET (0.125MG) PO SCH (06:18)
[2021-03-30 07:26] VITALS: BP 125/61
[2021-03-30] MEDS: FUROSEMIDE 40MG/4ML VIAL (J1940) IV SCH (08:31)
[2021-03-30] MEDS: ASPIRIN 81MG ENTERIC TABLET PO SCH (08:31)
[2021-03-30] MEDS: CLOPIDOGREL 75 MG TAB PO SCH (08:32)
[2021-03-30] MEDS: SPIRONOLACTONE 25 MG TAB PO SCH (08:32)
[2021-03-30] MEDS: AMIODARONE 200 MG TAB (PACERONE) PO SCH (08:32)
[2021-03-30] MEDS: ATORVASTATIN 20 MG TAB PO SCH (08:32)
[2021-03-30] MEDS: APIXABAN 5 MG TAB (ELIQUIS) PO SCH (08:32)
[2021-03-30] MEDS: LEVEMIR (INSULIN DETEMIR) 1 UNITS/0.01ML SC SCH (08:33)
[2021-03-30] MEDS: ENTRESTO 49-51MG TABLET (SACUBITRIL/VALSARTAN) PO SCH (08:33)
--- NOTE | 2021-03-30 11:15 | DS.PDOC ---
Discharge Summary General Date of Admission March 28, 2021 at 17:57 Date of Discharge March 29, 2021 Discharge Summary PROCEDURES PERFORMED DURING STAY: None ADMITTING DIAGNOSES: 1. Atrial flutter with rapid ventricular rate 2. Acute decompensated systolic and diastolic heart failure 3. JACOB on CKD stage 3 4. Diabetes mellitus type 2 5. Mitral valve replacement (pig valve) 6. Hypothyroidism DISCHARGE DIAGNOSES: 1. Atrial flutter with rapid ventricular rate 2. Acute decompensated systolic and diastolic heart failure 3. JACOB on CKD stage 3 4. Diabetes mellitus type 2 5. Mitral valve replacement (pig valve) 6. Hypothyroidism COMPLICATIONS/CHIEF COMPLAINT: Atrial Fluid With Rapid Ventricular Response. HISTORY OF PRESENT ILLNESS: Mrs. Schulte is a 70 year old female with DM2, combined systolic/diastolic CHF, MVR with pig valve, and ICD implanted who presents with 1 to 2 weeks of dyspnea and generalized weakness and found to have atrial flutter with heart rate in 140. About 1 to 2 weeks ago, she started to notice dyspnea on exertion. It had progressively worsened and sometimes had dyspnea while at rest. Otherwise, she had dizziness when sitting up and generalized weakness. She came to the ER for evaluation. She was found to have atrial flutter with HR at 140 with hypotension with SBP in the 80s to 90s. Patient was given 0.5mcg IV dig, and then subsequently amiodarone 150mg. There was no improvement and Dr. Spencer was contacted. Dr. Spencer looked at the EKG, it was atrial flutter. Recommended given 0.25mcg IV dig following by 0.25mcg IV dig 1 hour afterwards. Then contact him. I contacted him and he recommended amiodarone 150. If HR is not below 100 to give another amiodarone 150 about 30 minutes afterwards. Patient's atrial flutter converted to sinus rhythm converted prior to the 2nd amiodarone. In total, patient had digoxin 1mcg and amiodarone 150mg. Patient will be admitted for new onset atrial flutter, acute decompensated CHF, and JACOB. HOSPITAL COURSE: The following day, her HR remained controlled. Renal function improved. Patient was cleared by physical therapy, but she was very winded on ambulation. Patient was restarted on spironolactone and Entresto and Lasix was increased. She did well overnight. This morning, she denies chest pain or dyspnea. She tells me she is able to ambulate better. She feels ready for home and was subsequently discharged home with amiodarone and Eliquis. DISCHARGE MEDICATIONS: Please see below. ALLERGIES: Please see below. PHYSICAL EXAMINATION ON DISCHARGE: VITAL SIGNS: Please see below. GENERAL: Comfortable, in no apparent distress. HEENT: Head normocephalic/atraumatic, EOMI, sclera clear. NECK: Supple, no JVD. RESPIRATORY: Lungs clear to auscultation bilaterally, no rales, wheeze or rhonchi. CARDIOVASCULAR: Regular rate and rhythm. ABDOMEN: Soft, nontender, no guarding or rebound tenderness. Normal bowel sounds. MUSCLE SKELETAL: Muscle strength 5/5 in all extremities. NEUROLOGICAL: CN 312 grossly intact, no focal deficits noted. PSYCHOLOGICAL: Normal mood and affect LABORATORY DATA: Please see below. IMAGING: Radiologist interpretation 1. Findings suggesting pulmonary vascular congestion/interstitial edema. 2. No focal consolidation or effusion. PROGNOSIS: Good ACTIVITY: As tolerated. DIET: 2gm sodium diet and carbohydrate consistent diet DISCHARGE PLAN: Home with home health services DISPOSITION: Home with home health services DISCHARGE INSTRUCTIONS: 1. Follow up with your PCP in 1 week 2. 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 Monitor renal function DISCHARGE CONDITION: Stable Total time spent on discharge planning, discharge summary, and medication r econciliation: 55 minutes Vital Signs/I&Os Vital Signs Date Time Temp Pulse Resp B/P (MAP) Pulse Ox O2 Delivery O2 Flow Rate FiO2 03/30/21 07:26 96.7 64 18 125/61 (82) 98 Room Air I&O- Last 24 Hours up to 6 AM 03/30/21 06:00 Intake Total 660 ml Output Total 300 ml Balance 360 ml Laboratory Data Labs 24H Laboratory Tests 2 03/29/21 20:04: Bedside Glucose (Misc Panel) 320H 03/29/21 21:11: Clostridium difficile [id number] PRESUMPTIVE NEGATIVE, Clostridium difficile Toxin (PCR) NEGATIVE 03/30/21 05:09: Nucleated Red Blood Cells % (auto) 0.0, Anion Gap 9, Glomerular Filtration Rate 31.8L, Calcium Level 8.1L CBC/BMP Laboratory Tests 03/30/21 05:09 FSBS Laboratory Tests Test 03/29/21 20:04 Range/Units Bedside Glucose (Misc Panel) 320 83-110 MG/DL Microbiology Microbiology 03/28/21 Urine Culture - Final, Complete Discharge Medications Scheduled Amiodarone HCl (Amiodarone HCl) 200 Mg Tablet, 200 MG PO QID Apixaban (Eliquis) 5 Mg Tablet, 5 MG PO BID Aspirin (Aspirin EC) 81 Mg Tablet.dr, 81 MG PO DAILY, (Reported) Atorvastatin Calcium (Atorvastatin Calcium) 80 Mg Tablet, 80 MG PO DAILY, (Reported) Cholecalciferol (Vitamin D3) (Vitamin D3) 25 Mcg Capsule, 25 MCG PO DAILY, (Reported) Clopidogrel Bisulfate (Plavix) 75 Mg Tablet, 75 MG PO DAILY, (Reported) Furosemide (Furosemide) 20 Mg Tablet, 20 MG PO DAILY, (Reported) Insulin Aspart (Novolog) 100 Unit/1 Ml Cartridge, 1 DOSE SC AC, (Reported) PER SLIDING SCALE Insulin Glargine,Hum.rec.anlog (Basaglar Kwikpen U-100) 100 Unit/1 Ml Insuln.pen, 55 UNIT SC BID, (Reported) Levothyroxine Sodium (Synthroid) 125 Mcg Tablet, 125 MCG PO DAILY, (Reported) Liraglutide (Victoza 3-Antonio) 0.6 Mg/0.1 Ml Pen.injctr, 1.8 MG SQ DAILY, (Reported) Sacubitril/Valsartan (Entresto 49 mg-51 mg Tablet) 1 Each Tablet, 1 TAB PO BID, (Reported) Spironolactone (Spironolactone) 25 Mg Tablet, 25 MG PO DAILY, (Reported) Scheduled PRN Docusate Sodium (Docusate Sodium) 100 Mg Capsule, 100 MG PO BID PRN for CONSTIPATION, (Reported) Nitroglycerin (Nitroglycerin) 0.4 Mg Tab.subl, 0.4 MG SL NITRO PRN for CHEST PAIN, (Reported) Allergies Coded Allergies: Penicillins (Verified Allergy, Intermediate, rash, 03/28/21) SEAFOOD (Verified Allergy, Intermediate, vomiting , 03/28/21) iodine (Verified Allergy, Intermediate, vomiting, 03/28/21) DONNY HDEZ DO March 30, 2021 11:15
--- NOTE | 2021-03-31 09:42 | ECHO ---
ECHOCARDIOGRAM DATE OF PROCEDURE: 03/29/2021 Age: 70 Gender: Female Height: 62 inches Weight: 205 pounds Body surface area: 1.93 m2 PATIENT LOCATION: Inpatient PCU, Room 3214. REFERRING PHYSICIAN: Roman Middleton DO. INDICATION: Atrial flutter. Heart failure. MEASUREMENTS: 2D Measurements: RV 3.8 cm LV 7.8 cm Septum 1.0 cm Posterior wall 1.0 cm Aortic Root 3.3 cm LA 4.8 cm LVEF 18% Doppler Measurements: AV 1.54 m/s LVOT 0.7 m/s LVOT diameter 2.2 cm MV-E 129, A 166, E/A ratio 0.8 Pressure halftime 106 msec MV-A 2.1 cm2 PV 0.8 m/s Pulmonary artery acceleration time 95 msec PASP 39 mmHg IVC 1.7 cm COMMENTS: Normal sinus rhythm with incomplete LBBB. Technically difficult study in light of the patient's body habitus, but diagnostically useful information was still obtained. M-mode and two-dimensional echocardiography was performed with pulse, continuous wave, and color flow Doppler studies. Prominently dilated left ventricle with normal wall thickness and inferior apical and inferolateral akinesis. Apical akinesis with normal anterior, anteroseptal, and anterolateral motion. Severe impairment of global resting systolic function. Moderately dilated left atrium (unable to comment on left ventricular diastolic function in light of mitral valve disorder). Right heart chamber sizes were upper limits of normal with normal right ventricular free wall motion and Doppler evidence of mild pulmonary hypertension. Normal IVC size and collapse against an elevated central venous pressure. Normal aortic root size and ascending aorta. Moderate aortic valvular sclerosis with adequate cusp separation and only trace insufficiency. Bioprosthetic mitral valve with Doppler evidence indicative of adequate prosthetic valve function with no apparent insufficiency. Normal appearing tricuspid valve with very mild insufficiency. Pacing leads could be visualized traversing right heart structures, but no separate intracardiac mass. Very small posterior pericardial effusion without evidence of cardiac tamponade. Car Hou D.O. MD ROSENDO Borges
== END 2021-03-30 10:46 | disposition home health service (06) | DRG 291 ==
LOC: M ED 11:42 → M ED INP 17:57 → ENRESERV 18:27 → M PCU 21:18
PROVIDERS: ADMIT Internal Medicine; ATTEND Internal Medicine
DX: I13.0 Hypertensive heart and chronic kidney disease with heart failure and stage 1 through stage 4 chronic kidney disease, or unspecified chronic kidney disease (principal); I50.43 Acute on chronic combined systolic (congestive) and diastolic (congestive) heart failure; N17.9 Acute kidney failure, unspecified; I48.92 Unspecified atrial flutter; E11.22 Type 2 diabetes mellitus with diabetic chronic kidney disease; N18.30 Chronic kidney disease, stage 3 unspecified; E03.9 Hypothyroidism, unspecified; I25.10 Atherosclerotic heart disease of native coronary artery without angina pectoris; E11.319 Type 2 diabetes mellitus with unspecified diabetic retinopathy without macular edema; G47.33 Obstructive sleep apnea (adult) (pediatric); E53.8 Deficiency of other specified B group vitamins; F32.9 Major depressive disorder, single episode, unspecified; H54.8 Legal blindness, as defined in USA; Z95.3 Presence of xenogenic heart valve; Z95.810 Presence of automatic (implantable) cardiac defibrillator; Z79.82 Long term (current) use of aspirin; Z79.4 Long term (current) use of insulin; Z79.899 Other long term (current) drug therapy; Z88.0 Allergy status to penicillin; Z88.8 Allergy status to other drugs, medicaments and biological substances; Z91.013 Allergy to seafood; Z98.49 Cataract extraction status, unspecified eye; Z95.5 Presence of coronary angioplasty implant and graft; Z90.49 Acquired absence of other specified parts of digestive tract; Z20.822 Contact with and (suspected) exposure to COVID-19

== ENCOUNTER → 2021-05-05 | Outpatient (REF) | payer MEDICARE, MEDICAID ==
[~2021-05-05] MED LIST changes: +AMIO200T3 PO; +ASPI81TA26 PO; +ATOR80TA59 PO; +BASA100I SC; +D 101000 PO; +DOCU100C16 PO; +ELIQ5TAB PO; +ENTR1TAB7 PO; +FURO20TA2 PO; +NITR0.4S14 SL; +NOVOINJ SC; +PLAV1TAB2 PO; +SPIR-10 PO; +SYNT125T PO; +VICT18IN2 SQ
== END ==
LOC: M LAB REF 16:51
PROVIDERS: ATTEND Internal Medicine Nephrology
DX: N18.31 Chronic kidney disease, stage 3a (principal)

== ENCOUNTER → 2021-08-05 | Outpatient (REF) | payer MEDICARE, MEDICAID | LOC: M LAB REF 17:17 | PROVIDERS: ATTEND Internal Medicine Nephrology | DX: N18.32 Chronic kidney disease, stage 3b (principal) ==

== ENCOUNTER → 2021-09-03 | Outpatient (REF) | payer MEDICARE, MEDICAID | LOC: M LAB REF 12:52 | PROVIDERS: ATTEND Nurse Practitioner Family | DX: N18.32 Chronic kidney disease, stage 3b (principal) ==

== ENCOUNTER → 2021-11-12 | Outpatient (CLI) | payer MEDICAID, MEDICARE ==
[~2021-11-12] MED LIST changes: -AMIO200T3 PO; +AMIO200T49 PO
[2021-11-12 10:53] LABS: HEMATOCRIT 39.3 % (36.0-47.0); HEMOGLOBIN 12.8 g/dl (12.0-15.5); MEAN CORPUSCULAR HEMOGLOBIN 30.8 pg (27.0-33.0); MEAN CORPUSCULAR HGB CONC 32.6 g/dl (32.0-36.5); MEAN CORPUSCULAR VOLUME 94.7 fl (80.0-96.0); PLATELET COUNT, AUTOMATED 193 10^3/uL (150-450); RED BLOOD COUNT 4.15 10^6/uL (4.00-5.40); WHITE BLOOD COUNT 10.9 10^3/uL (4.0-10.0)
[2021-11-12 11:11] LABS: ALBUMIN 3.6 GM/DL (3.2-5.2); BILIRUBIN,DIRECT 0.2 MG/DL (0.0-0.2); BILIRUBIN,TOTAL 0.5 MG/DL (0.2-1.0); CHOLESTEROL RISK RATIO 4.322 (<5); MAGNESIUM LEVEL 2.2 MG/DL (1.8-2.4); THYROID STIMULATING HORMONE 1.21 uIU/ML (0.358-3.740); TOTAL PROTEIN 6.9 GM/DL (6.4-8.2)
== END ==
LOC: M PLAIMG 08:10
PROVIDERS: ATTEND Physician Assistant
DX: I25.10 Atherosclerotic heart disease of native coronary artery without angina pectoris (principal); E78.2 Mixed hyperlipidemia; I50.42 Chronic combined systolic (congestive) and diastolic (congestive) heart failure; I47.2 Ventricular tachycardia

== ENCOUNTER → 2022-03-04 | Outpatient (CLI) | payer MEDICARE, MEDICAID ==
[2022-03-04 14:29] LABS: CALCIUM LEVEL 9.6 MG/DL (8.8-10.2); CREATININE FOR GFR 2.33 MG/DL (0.55-1.30); GLOMERULAR FILTRATION RATE 21.9 (>39); POTASSIUM SERUM 4.6 MEQ/L (3.5-5.1)
== END ==
LOC: M PLALAB 11:31
PROVIDERS: ATTEND Physician Assistant
DX: I50.42 Chronic combined systolic (congestive) and diastolic (congestive) heart failure (principal)

== ENCOUNTER 2022-03-05 12:44 | Emergency (ER) | payer MEDICARE, MEDICAID ==
[~2022-03-05] VITALS: Ht 154.9 cm; Wt 99.5 kg
[2022-03-05 13:20] LABS: BASO % 0.2 % (0.0-1.0); EOS # 0.1 10^3/uL (0.0-0.5); EOS % 0.5 % (0.0-3.0); HEMATOCRIT 41.1 % (36.0-47.0); HEMOGLOBIN 13.4 g/dl (12.0-15.5); LYMPH # 2.1 10^3/uL (1.5-5.0); LYMPH % 15.7 % (24.0-44.0); MEAN CORPUSCULAR HEMOGLOBIN 31.5 pg (27.0-33.0); MEAN CORPUSCULAR HGB CONC 32.6 g/dl (32.0-36.5); MEAN CORPUSCULAR VOLUME 96.5 fl (80.0-96.0); MONO % 11.9 % (2.0-8.0); NEUTROPHILS # 9.3 10^3/uL (1.5-8.5); NEUTROPHILS % 71.4 % (36.0-66.0); PLATELET COUNT, AUTOMATED 220 10^3/uL (150-450); RED BLOOD COUNT 4.26 10^6/uL (4.00-5.40)
[2022-03-05 13:30] LABS: PARTIAL THROMBOPLASTIN TIME 37.7 SECONDS (25.9-37.0)
[2022-03-05 13:39] LABS: INR 1.62; PROTHROMBIN TIME 19.7 SECONDS (12.7-14.5)
[2022-03-05 13:52] LABS: MB/CK RELATIVE INDEX 1.85 (< OR =4)
[2022-03-05 13:55] LABS: CALCIUM LEVEL 9.4 MG/DL (8.8-10.2); CREATININE FOR GFR 2.84 MG/DL (0.55-1.30); GLOMERULAR FILTRATION RATE 17.4 (>39); MONO # 1.6 10^3/uL (0.0-0.8); POTASSIUM SERUM 4.8 MEQ/L (3.5-5.1)
[2022-03-05 14:03] LABS: FREE T4 1.62 NG/DL (0.76-1.46); MAGNESIUM LEVEL 2.3 MG/DL (1.8-2.4); THYROID STIMULATING HORMONE 2.64 uIU/ML (0.358-3.740)
[2022-03-05] MEDS ORDERED: propofoL 200 MG/20 ML VIAL IV.PROC PRN (14:10)
[2022-03-05] MEDS ORDERED: NS 1,000 ML IV SCH (14:10)
[2022-03-05 14:41] VITALS: O2SAT 98
[2022-03-05 17:01] VITALS: BP 168/75
== END 2022-03-05 17:13 | disposition home or self-care (01) ==
LOC: EDBD 12:44 → M ED 12:44
DX: I47.2 Ventricular tachycardia (principal); I44.0 Atrioventricular block, first degree; I25.2 Old myocardial infarction; I50.9 Heart failure, unspecified; E11.9 Type 2 diabetes mellitus without complications; N18.30 Chronic kidney disease, stage 3 unspecified; Z79.01 Long term (current) use of anticoagulants; Z79.82 Long term (current) use of aspirin; Z79.899 Other long term (current) drug therapy; Z79.4 Long term (current) use of insulin; Z88.0 Allergy status to penicillin; Z91.013 Allergy to seafood; Z95.5 Presence of coronary angioplasty implant and graft; Z95.0 Presence of cardiac pacemaker

== ENCOUNTER → 2022-03-12 | Outpatient (CLI) | payer MEDICARE, MEDICAID | LOC: M WHC 14:51 | PROVIDERS: ATTEND Psychiatry & Neurology Neurology | DX: I65.23 Occlusion and stenosis of bilateral carotid arteries (principal); R42 Dizziness and giddiness ==

== ENCOUNTER 2022-03-26 12:16 | Emergency (ER) | payer MEDICARE, MEDICAID ==
[2022-03-26] MEDS ORDERED: fentaNYL 100 MCG/2 ML INJECTION IV ONE ×2 (14:50→16:50)
[2022-03-26 15:05] LABS: BASO % 0.3 % (0.0-1.0); EOS # 0.1 10^3/uL (0.0-0.5); EOS % 0.7 % (0.0-3.0); HEMATOCRIT 42.5 % (36.0-47.0); HEMOGLOBIN 13.8 g/dl (12.0-15.5); LYMPH # 1.9 10^3/uL (1.5-5.0); LYMPH % 18.8 % (24.0-44.0); MEAN CORPUSCULAR HEMOGLOBIN 31.5 pg (27.0-33.0); MEAN CORPUSCULAR HGB CONC 32.5 g/dl (32.0-36.5); MONO % 9.3 % (2.0-8.0); NEUTROPHILS # 7.3 10^3/uL (1.5-8.5); NEUTROPHILS % 70.6 % (36.0-66.0); PLATELET COUNT, AUTOMATED 213 10^3/uL (150-450); RED BLOOD COUNT 4.38 10^6/uL (4.00-5.40); WHITE BLOOD COUNT 10.3 10^3/uL (4.0-10.0)
[2022-03-26 15:24] LABS: ALBUMIN 3.7 GM/DL (3.2-5.2); BILIRUBIN,DIRECT 0.1 MG/DL (0.0-0.2); BILIRUBIN,TOTAL 0.4 MG/DL (0.2-1.0); TOTAL PROTEIN 7.4 GM/DL (6.4-8.2)
[2022-03-26 16:10] LABS: APPEARANCE, URINE CLEAR (CLEAR); BACTERIA, URINE AUTO NEGATIVE (NEGATIVE); BILIRUBIN, URINE AUTO NEGATIVE (NEGATIVE); BLOOD, URINE BLOOD NEGATIVE (NEGATIVE); COLOR, URINE YELLOW (YELLOW); GLUCOSE, URINE (UA) AUTO NEGATIVE (NEGATIVE); KETONE, URINE AUTO NEGATIVE (NEGATIVE); LEUKOCYTE ESTERASE, URINE AUTO TRACE (NEGATIVE); MUCUS, URINE SMALL (NEGATIVE); NITRITE, URINE AUTO NEGATIVE (NEGATIVE); PROTEIN, URINE AUTO NEGATIVE (NEGATIVE); RBC, URINE AUTO 5 /HPF (0-3); SPECIFIC GRAVITY URINE AUTO 1.011 (1.002-1.035); SQUAMOUS EPITHELIAL CELL UR AU 1 /HPF (0-6); TRANSITIONAL EPITHELIAL AUTO <1 /HPF; UROBILINOGEN, URINE AUTO 0.2 mg/dL (0.0-2.0); WBC, URINE AUTO 3 /HPF (0-3)
[2022-03-26] MEDS ORDERED: FLOM0.4C39 PO (16:39)
[2022-03-26] MEDS ORDERED: HYDR-4429 PO (16:39)
[2022-03-26] MEDS ORDERED: ONDA4TAB6 PO (16:39)
[2022-03-26] MEDS ORDERED: NORCO, ANEXSIA 5/325MG TABLET (HYDROcodone/ACETAMINOPHEN) PO ONE (16:55)
[2022-03-26 17:03] VITALS: BP 171/98
[2022-03-26] MEDS ORDERED: HYDR-4571 PO (17:52)
== END 2022-03-26 17:05 | disposition home or self-care (01) ==
LOC: M ED 12:16
DX: N23 Unspecified renal colic (principal); R11.2 Nausea with vomiting, unspecified; E10.9 Type 1 diabetes mellitus without complications; G51.0 Bell's palsy; E03.9 Hypothyroidism, unspecified; N18.30 Chronic kidney disease, stage 3 unspecified; Z95.0 Presence of cardiac pacemaker; Z79.01 Long term (current) use of anticoagulants; Z79.899 Other long term (current) drug therapy; Z88.0 Allergy status to penicillin
CPT/HCPCS: 76775; 80047; 80076; 81001; 83690; 85025; 96374; 99284; J3010

== ENCOUNTER → 2022-04-20 | Outpatient (REF) | payer MEDICARE, MEDICAID ==
[~2022-04-20] MED LIST changes: +FLOM0.4C39 PO; +HYDR-4429 PO; +HYDR-4571 PO; +ONDA4TAB6 PO
== END ==
LOC: M SFHCPLAZ 14:23
PROVIDERS: ATTEND Family Medicine
DX: E11.69 Type 2 diabetes mellitus with other specified complication (principal)

== ENCOUNTER → 2022-04-20 | Outpatient (CLI) | payer MEDICARE, MEDICAID ==
[2022-04-20 15:45] LABS: CALCIUM LEVEL 10.1 MG/DL (8.8-10.2); CREATININE FOR GFR 1.74 MG/DL (0.55-1.30); GLOMERULAR FILTRATION RATE 30.6 (>39); POTASSIUM SERUM 4.7 MEQ/L (3.5-5.1)
[2022-04-20 16:19] LABS: CREATININE, URINE 20.6 MG/DL; MALB URINE SIEMENS 5.2 MG/L; MAU/CREAT RATIO 25.2 MCG/MG (0.0-30.0)
[2022-04-20 16:21] LABS: HEMOGLOBIN A1c 7.9 %
== END ==
LOC: M PLALAB 14:02
PROVIDERS: ATTEND Student in an Organized Health Care Education/Training Program
DX: E11.69 Type 2 diabetes mellitus with other specified complication (principal)

== ENCOUNTER 2022-07-21 08:30 | Emergency (ER) | payer MEDICARE, MEDICAID ==
[~2022-07-21] VITALS: Ht 157.5 cm; Wt 99.5 kg
[2022-07-21 08:31] VITALS: BP 176/79
[2022-07-21] MEDS ORDERED: AMIO200T37 (08:45)
[2022-07-21] MEDS ORDERED: EUTH112T (08:45)
[2022-07-21] MEDS ORDERED: MAGN400T33 (08:45)
[2022-07-21] MEDS ORDERED: NORCO, ANEXSIA 5/325MG TABLET (HYDROcodone/ACETAMINOPHEN) PO ONE (09:05)
== END 2022-07-21 12:55 | disposition home or self-care (01) ==
LOC: M ED 08:30
DX: S92.001A Unspecified fracture of right calcaneus, initial encounter for closed fracture (principal); S92.311A Displaced fracture of first metatarsal bone, right foot, initial encounter for closed fracture; W19.XXXA Unspecified fall, initial encounter; Y92.512 Supermarket, store or market as the place of occurrence of the external cause; I50.9 Heart failure, unspecified; I25.2 Old myocardial infarction; E11.9 Type 2 diabetes mellitus without complications; I10 Essential (primary) hypertension; N18.30 Chronic kidney disease, stage 3 unspecified; Z95.0 Presence of cardiac pacemaker; Z79.01 Long term (current) use of anticoagulants; Z79.4 Long term (current) use of insulin; Z79.899 Other long term (current) drug therapy; Z88.0 Allergy status to penicillin; Z91.013 Allergy to seafood; Z91.89 Other specified personal risk factors, not elsewhere classified

== ENCOUNTER → 2022-08-05 | Outpatient (CLI) | payer MEDICARE, MEDICAID ==
[~2022-08-05] MED LIST changes: +AMIO200T37; +EUTH112T; +MAGN400T33
== END ==
LOC: M SOG 08:33
PROVIDERS: ATTEND Orthopaedic Surgery Hand Surgery
DX: S93.401A Sprain of unspecified ligament of right ankle, initial encounter (principal); W19.XXXA Unspecified fall, initial encounter; Y92.009 Unspecified place in unspecified non-institutional (private) residence as the place of occurrence of the external cause

== ENCOUNTER → 2022-09-06 | Outpatient (CLI) | payer MEDICARE, MEDICAID ==
[~2022-09-06] MED LIST changes: +CLOP75TA99 PO; -PLAV1TAB2 PO
== END ==
LOC: M SOG 08:42
PROVIDERS: ATTEND Orthopaedic Surgery Hand Surgery
DX: S93.401A Sprain of unspecified ligament of right ankle, initial encounter (principal); W18.30XA Fall on same level, unspecified, initial encounter; Y92.009 Unspecified place in unspecified non-institutional (private) residence as the place of occurrence of the external cause

== ENCOUNTER → 2022-12-15 | Outpatient (CLI) | payer MEDICARE, MEDICAID | LOC: M PLAIMG 14:01 → M RAD 14:01 | PROVIDERS: ATTEND Student in an Organized Health Care Education/Training Program | DX: M23.51 Chronic instability of knee, right knee (principal); M25.362 Other instability, left knee ==

== ENCOUNTER → 2023-02-01 | Outpatient (REF) | payer MEDICARE, MEDICAID | LOC: M SFHCPLAZ 14:21 | PROVIDERS: ATTEND Family Medicine | DX: R25.2 Cramp and spasm (principal); E11.42 Type 2 diabetes mellitus with diabetic polyneuropathy ==

== ENCOUNTER → 2023-02-07 | Outpatient (CLI) | payer MEDICARE, MEDICAID ==
[2023-02-07 13:37] LABS: ALBUMIN 3.4 G/DL (3.2-5.2); BASO % 0.3 % (0.0-1.0); BILIRUBIN,TOTAL 0.4 MG/DL (0.3-1.2); CALCIUM LEVEL 9.5 MG/DL (8.3-10.6); CHOLESTEROL RISK RATIO 5.3 (<5); CREATININE FOR GFR 1.76 MG/DL (0.55-1.30); EOS # 0.1 10^3/uL (0.0-0.5); EOS % 1.1 % (0.0-3.0); GLOMERULAR FILTRATION RATE 30.1 (>39); HDL CHOLESTEROL 32.8 MG/DL (>40); HEMATOCRIT 41.5 % (36.0-47.0); LYMPH % 22.4 % (24.0-44.0); MEAN CORPUSCULAR HEMOGLOBIN 30.8 pg (27.0-33.0); MEAN CORPUSCULAR HGB CONC 31.3 g/dl (32.0-36.5); MEAN CORPUSCULAR VOLUME 98.3 fl (80.0-96.0); MONO # 1.1 10^3/uL (0.0-0.8); MONO % 12.3 % (2.0-8.0); NEUTROPHILS # 5.8 10^3/uL (1.5-8.5); NEUTROPHILS % 63.6 % (36.0-66.0); NON-HDL-C 141.2 MG/DL; PLATELET COUNT, AUTOMATED 203 10^3/uL (150-450); POTASSIUM SERUM 4.8 MMOL/L (3.5-5.1); RED BLOOD COUNT 4.22 10^6/uL (4.00-5.40); TOTAL PROTEIN 6.5 G/DL (5.7-8.2); WHITE BLOOD COUNT 9.1 10^3/uL (4.0-10.0)
[2023-02-07 13:51] LABS: MAU/CREAT RATIO 19.3 MCG/MG (0.0-30.0)
[2023-02-07 14:25] LABS: HEMOGLOBIN A1c 8.9 % (4.0-6.0)
== END ==
LOC: M PLALAB 10:10
PROVIDERS: ATTEND Student in an Organized Health Care Education/Training Program
DX: R25.2 Cramp and spasm (principal); E11.42 Type 2 diabetes mellitus with diabetic polyneuropathy; I48.92 Unspecified atrial flutter; I50.42 Chronic combined systolic (congestive) and diastolic (congestive) heart failure; I47.20 Ventricular tachycardia, unspecified; I25.10 Atherosclerotic heart disease of native coronary artery without angina pectoris; E78.2 Mixed hyperlipidemia; Z95.0 Presence of cardiac pacemaker; Z95.1 Presence of aortocoronary bypass graft; Z95.4 Presence of other heart-valve replacement

== ENCOUNTER → 2023-02-07 | Outpatient (CLI) | payer MEDICARE, MEDICAID ==
[2023-02-07 13:37] LABS: ALBUMIN 3.4 G/DL (3.2-5.2); BILIRUBIN,TOTAL 0.4 MG/DL (0.3-1.2); CALCIUM LEVEL 9.6 MG/DL (8.3-10.6); CHOLESTEROL RISK RATIO 5.29 (<5); CREATININE FOR GFR 1.78 MG/DL (0.55-1.30); GLOMERULAR FILTRATION RATE 29.7 (>39); HDL CHOLESTEROL 32.7 MG/DL (>40); LDL CHOLESTEROL 98.3 MG/DL (<100); NON-HDL-C 140.3 MG/DL; TOTAL PROTEIN 6.5 G/DL (5.7-8.2)
[2023-02-07 13:41] LABS: BASO % 0.3 % (0.0-1.0); EOS # 0.1 10^3/uL (0.0-0.5); EOS % 1.1 % (0.0-3.0); HEMATOCRIT 41.6 % (36.0-47.0); HEMOGLOBIN 12.9 g/dl (12.0-15.5); LYMPH # 2.2 10^3/uL (1.5-5.0); LYMPH % 22.8 % (24.0-44.0); MEAN CORPUSCULAR HEMOGLOBIN 30.6 pg (27.0-33.0); MEAN CORPUSCULAR VOLUME 98.6 fl (80.0-96.0); MONO # 1.2 10^3/uL (0.0-0.8); MONO % 12.8 % (2.0-8.0); NEUTROPHILS # 5.9 10^3/uL (1.5-8.5); NEUTROPHILS % 62.7 % (36.0-66.0); PLATELET COUNT, AUTOMATED 217 10^3/uL (150-450); RED BLOOD COUNT 4.22 10^6/uL (4.00-5.40); WHITE BLOOD COUNT 9.5 10^3/uL (4.0-10.0)
== END ==
LOC: M PLALAB 10:13
PROVIDERS: ATTEND Physician Assistant
DX: I48.92 Unspecified atrial flutter (principal); I50.42 Chronic combined systolic (congestive) and diastolic (congestive) heart failure; I47.20 Ventricular tachycardia, unspecified; I25.10 Atherosclerotic heart disease of native coronary artery without angina pectoris; E78.2 Mixed hyperlipidemia; Z95.0 Presence of cardiac pacemaker; Z95.1 Presence of aortocoronary bypass graft; Z95.4 Presence of other heart-valve replacement

== ENCOUNTER → 2023-05-30 | Outpatient (CLI) | payer MEDICARE, MEDICAID ==
[2023-05-30 14:15] LABS: CREATININE FOR GFR 1.75 MG/DL (0.55-1.30); GLOMERULAR FILTRATION RATE 30.3 (>39); POTASSIUM SERUM 4.3 MMOL/L (3.5-5.1)
== END ==
LOC: M PLALAB 09:48
PROVIDERS: ATTEND Student in an Organized Health Care Education/Training Program
DX: E11.9 Type 2 diabetes mellitus without complications (principal)

== ENCOUNTER → 2024-01-30 | Outpatient (CLI) | payer OTHER, MEDICAID ==
[2024-01-30 18:31] LABS: BASO % 0.2 % (0.0-1.0); EOS # 0.1 10^3/uL (0.0-0.5); EOS % 0.6 % (0.0-3.0); HEMATOCRIT 42.4 % (36.0-47.0); HEMOGLOBIN 13.6 g/dl (12.0-15.5); LYMPH # 2.1 10^3/uL (1.5-5.0); LYMPH % 24.5 % (24.0-44.0); MEAN CORPUSCULAR HGB CONC 32.1 g/dl (32.0-36.5); MEAN CORPUSCULAR VOLUME 96.6 fl (80.0-96.0); MONO # 1.1 10^3/uL (0.0-0.8); MONO % 12.5 % (2.0-8.0); NEUTROPHILS # 5.3 10^3/uL (1.5-8.5); NEUTROPHILS % 61.8 % (36.0-66.0); PLATELET COUNT, AUTOMATED 181 10^3/uL (150-450); RED BLOOD COUNT 4.39 10^6/uL (4.00-5.40); WHITE BLOOD COUNT 8.6 10^3/uL (4.0-10.0)
[2024-01-30 18:47] LABS: THYROID STIMULATING HORMONE 3.112 uIU/ML (0.55-4.78); TOTAL 25(OH) VITAMIN D 24.9 NG/ML (20.0-100.0)
[2024-01-30 18:50] LABS: CREATININE FOR GFR 1.33 MG/DL (0.55-1.30); GLOMERULAR FILTRATION RATE 41.5 (>39); POTASSIUM SERUM 3.9 MMOL/L (3.5-5.1)
[2024-01-30 18:59] LABS: FOLATE 20.3 NG/ML (>5.4)
[2024-01-30 19:27] LABS: HEMOGLOBIN A1c 7.7 % (4.0-6.0)
== END ==
LOC: M PLALAB 14:55
PROVIDERS: ATTEND Student in an Organized Health Care Education/Training Program
DX: E03.9 Hypothyroidism, unspecified (principal); E11.9 Type 2 diabetes mellitus without complications; E55.9 Vitamin D deficiency, unspecified; E53.9 Vitamin B deficiency, unspecified; I25.2 Old myocardial infarction

== ENCOUNTER → 2024-08-03 | Outpatient (CLI) | payer OTHER, MEDICAID ==
[~2024-08-03] MED LIST changes: +ONDA-282 PO; -ONDA4TAB6 PO
[2024-08-03 10:31] LABS: ALBUMIN 3.4 G/DL (3.2-5.2); BILIRUBIN,TOTAL 0.4 MG/DL (0.3-1.2); CALCIUM LEVEL 9.7 MG/DL (8.3-10.6); CHOLESTEROL RISK RATIO 7.29 (<5); CREATININE FOR GFR 1.79 MG/DL (0.55-1.30); GLOMERULAR FILTRATION RATE 29.4 (>39); HDL CHOLESTEROL 26.6 MG/DL (>40); LDL CHOLESTEROL 127.2 MG/DL (<100); MAGNESIUM LEVEL 2.4 MG/DL (1.8-2.4); NON-HDL-C 167.4 MG/DL; POTASSIUM SERUM 4.3 MMOL/L (3.5-5.1); TOTAL PROTEIN 6.5 G/DL (5.7-8.2)
[2024-08-03 10:34] LABS: THYROID STIMULATING HORMONE 1.443 uIU/ML (0.55-4.78)
== END ==
LOC: M PLALAB 08:37 → M PLAIMG 08:37
PROVIDERS: ATTEND Physician Assistant
DX: I50.42 Chronic combined systolic (congestive) and diastolic (congestive) heart failure (principal)

== ENCOUNTER → 2025-03-06 | Outpatient (CLI) | payer OTHER, MEDICAID ==
[~2025-03-06] MED LIST changes: -FLOM0.4C39 PO; +TAMS-18 PO
[2025-03-06 15:53] LABS: HEMATOCRIT 44.2 % (36.0-47.0); HEMOGLOBIN 14.4 g/dl (12.0-15.5); MEAN CORPUSCULAR HGB CONC 32.6 g/dl (32.0-36.5); MEAN CORPUSCULAR VOLUME 95.1 fl (80.0-96.0); PLATELET COUNT, AUTOMATED 172 10^3/uL (150-450); RED BLOOD COUNT 4.65 10^6/uL (4.00-5.40); WHITE BLOOD COUNT 8.5 10^3/uL (4.0-10.0)
[2025-03-06 16:21] LABS: THYROID STIMULATING HORMONE 0.2 uIU/ML (0.55-4.78)
[2025-03-06 16:31] LABS: ALBUMIN 3.7 G/DL (3.2-5.2); BILIRUBIN,TOTAL 0.5 MG/DL (0.3-1.2); CALCIUM LEVEL 9.6 MG/DL (8.3-10.6); CREATININE FOR GFR 1.51 MG/DL (0.55-1.30); GLOMERULAR FILTRATION RATE 35.8 (>39); MAGNESIUM LEVEL 2.5 MG/DL (1.8-2.4); POTASSIUM SERUM 4.9 MMOL/L (3.5-5.1)
== END ==
LOC: M PLALAB 12:30
PROVIDERS: ATTEND Physician Assistant
DX: I48.92 Unspecified atrial flutter (principal)

== ENCOUNTER → 2025-06-05 | Outpatient (CLI) | payer OTHER, MEDICAID ==
[~2025-06-05] MED LIST changes: -AMIO200T49 PO; +AMIO200T54 PO
== END ==
LOC: M PLALAB 10:31
PROVIDERS: ATTEND Physician Assistant
DX: E05.90 Thyrotoxicosis, unspecified without thyrotoxic crisis or storm (principal); I48.92 Unspecified atrial flutter; I47.20 Ventricular tachycardia, unspecified

== ENCOUNTER → 2025-07-18 | Outpatient (CLI) | payer OTHER, MEDICAID ==
[2025-07-18 11:33] LABS: CREATININE, URINE 108.3 MG/DL; MALB URINE SIEMENS 15.0 MG/L; MAU/CREAT RATIO 13.8 MCG/MG (0.0-30.0)
[2025-07-18 11:34] LABS: FREE T4 1.28 NG/DL (0.89-1.76)
[2025-07-18 13:26] LABS: ESTIMATED AVERAGE GLUCOSE 157.0 MG/DL (60-110)
== END ==
LOC: M PLALAB 08:42
PROVIDERS: ATTEND Family Medicine
DX: E03.9 Hypothyroidism, unspecified (principal); E11.65 Type 2 diabetes mellitus with hyperglycemia

== ENCOUNTER → 2025-08-12 | Outpatient (CLI) | payer OTHER, MEDICAID | LOC: M PLAIMG 12:21 | PROVIDERS: ATTEND Physician Assistant | DX: I50.42 Chronic combined systolic (congestive) and diastolic (congestive) heart failure (principal); Z95.3 Presence of xenogenic heart valve; I08.2 Rheumatic disorders of both aortic and tricuspid valves ==